=== PATIENT | female | born 1970 | race Caucasian/White ===

== ENCOUNTER → 2016-08-07 | Outpatient (CLI) | payer OTHER ==
[~2016-08-07] MED LIST: ALPR1TAB3 PO; AMLO2.5T PO; ATOR-22 PO; AZIT500T26 PO; BUPR200T2 PO; CHOL100010 PO; FENT75DI17 TD; FERR325T5 PO; FLUO0.05 TOP; HYD10 PO; LAMO1TAB75 PO; LAMO200T38 PO; LEVO1TAB PO; LRS20 PO; MAGN400T6 PO; METO25TA56 PO; MODA1TAB6 PO; MULT-506 PO; OXYC1TAB3 PO; POLY335025 PO; PRLSR20 PO; QUET1TAB13 PO; RANI300T2 PO; RIZA1TAB11 SL; SENN-61 PO; TOBR0.3S4 OPB; TRAM-10 PO; [UNRECOGNIZED DRUG - CODE] PO
[2016-08-07 11:31] LABS: HEMATOCRIT 37.9 % (37-47); MEAN CELL VOLUME 89.4 fL (80-100); MEAN CORPUSCULAR HEMOGLOBIN 29.7 pg (25-34); MEAN CORPUSCULAR HGB CONC 33.2 g/dl (32-36); MEAN PLATELET VOLUME 9.7 fL (7.4-10.4); PLATELET COUNT 232 K/uL (130-400); RED BLOOD COUNT 4.24 M/uL (4.2-5.4); WHITE BLOOD COUNT 9.41 K/uL (4.8-10.8)
[2016-08-07 11:43] LABS: ESTIMATED AVERAGE GLUCOSE 117 mg/dl; HA1C FLAG Normal (Normal)
[2016-08-07 11:57] LABS: ALT/SGPT 17 U/L (12-78); AST/SGOT 7 U/L (15-37); BLOOD UREA NITROGEN 22 mg/dl (7-18); BUN/CREATININE RATIO 20.4 (10-20); CALCIUM 8.2 mg/dl (8.5-10.1); CARBON DIOXIDE 27 mmol/L (21-32); CHLORIDE 106 mmol/L (98-107); GLUCOSE 77 mg/dl (70-99); POTASSIUM 4.6 mmol/L (3.5-5.1); SODIUM 140 mmol/L (136-145)
[2016-08-07 12:08] LABS: ALKALINE PHOSPHATASE 92 U/L (45-117); CHOLESTEROL 153 mg/dl (0-200); CHOLESTEROL/HDL RATIO 2.2; FERRITIN 154.7 ng/ml (8.0-388.0); HDL CHOLESTEROL 69 mg/dl; LDL CHOLESTEROL CALCULATED 68 mg/dl; TRIGLYCERIDES 80 mg/dl (0-150); VERY LOW DENSITY LIPOPROT CALC 16 mg/dl
== END | disposition home or self-care (01) ==
LOC: C.LAB 10:44
PROVIDERS: ATTEND Family Medicine
DX: F32.9 Major depressive disorder, single episode, unspecified (principal); I12.9 Hypertensive chronic kidney disease with stage 1 through stage 4 chronic kidney disease, or unspecified chronic kidney disease; E03.9 Hypothyroidism, unspecified; G37.9 Demyelinating disease of central nervous system, unspecified; E27.40 Unspecified adrenocortical insufficiency; E78.00 Pure hypercholesterolemia, unspecified; E55.9 Vitamin D deficiency, unspecified; N18.3 Chronic kidney disease, stage 3 (moderate); R07.89 Other chest pain; R73.09 Other abnormal glucose

== ENCOUNTER → 2016-11-13 | Outpatient (CLI) | payer OTHER ==
[~2016-11-13] MED LIST changes: -MODA1TAB6 PO; +MODA200T42 PO
[2016-11-13 14:19] LABS: THYROID STIMULATING HORMONE 1.64 uIu/ml (0.300-4.500)
== END | disposition home or self-care (01) ==
LOC: C.LAB 12:51
PROVIDERS: ATTEND Family Medicine
DX: E03.9 Hypothyroidism, unspecified (principal)

== ENCOUNTER 2017-05-18 14:29 | Emergency (ER) | payer OTHER ==
[~2017-05-18] VITALS: Ht 160 cm; Wt 105.1 kg
[~2017-05-18 14:29] MED LIST changes: +LAMO200T35 PO; -LAMO200T38 PO
[2017-05-18 14:39] VITALS: TEMP 36.7; Ht 160 cm; Wt 105.1 kg
[2017-05-18] MEDS ORDERED: ONDANSETRON INJ 2 MG/ML 2 ML VIAL IV STA (14:53)
[2017-05-18] MEDS ORDERED: MoRPHine SULFATE 4 MG/ML 1 ML CARP\\VIAL IV STA (14:53)
[2017-05-18] MEDS ORDERED: OPTIRAY 320 IV PRN (15:15)
[2017-05-18 15:18] VITALS: O2SAT 96
[2017-05-18 15:19] LABS: BASO % 0.2 %; BASO ABS # 0.02 K/uL (0-0.2); COMPLETE YES; EOS % 2.7 %; HEMATOCRIT 38.7 % (37-47); IG% 0.1 %; LYMPH % 33.6 %; LYMPH ABS # 2.78 K/uL (1.2-3.4); MEAN CELL VOLUME 89.6 fL (80-100); MEAN CORPUSCULAR HEMOGLOBIN 30.3 pg (25-34); MEAN CORPUSCULAR HGB CONC 33.9 g/dl (32-36); MEAN PLATELET VOLUME 9.6 fL (7.4-10.4); NEUT % 55.4 %; PLATELET COUNT 244 K/uL (130-400); RED BLOOD COUNT 4.32 M/uL (4.2-5.4); WHITE BLOOD COUNT 8.28 K/uL (4.8-10.8)
[2017-05-18 15:39] LABS: ALT/SGPT 23 U/L (12-78); AST/SGOT 15 U/L (15-37); BLOOD UREA NITROGEN 16 mg/dl (7-18); BUN/CREATININE RATIO 15.1 (10-20); CALCIUM 8.8 mg/dl (8.5-10.1); CARBON DIOXIDE 26 mmol/L (21-32); CHLORIDE 106 mmol/L (98-107); CREATININE 1.05 mg/dl (0.60-1.20); GLUCOSE 91 mg/dl (70-99); POTASSIUM 3.8 mmol/L (3.5-5.1); SODIUM 137 mmol/L (136-145)
[2017-05-18 15:42] LABS: ALKALINE PHOSPHATASE 148 U/L (45-117)
[2017-05-18] MEDS ORDERED: DOXE150C PO (16:04)
[2017-05-18] MEDS ORDERED: BACL20TA PO (16:04)
[2017-05-18] MEDS ORDERED: SYN137 PO (16:04)
[2017-05-18] MEDS ORDERED: LDXCR30 TOP (16:04)
[2017-05-18] MEDS ORDERED: CHOL100041 PO (16:04)
[2017-05-18] MEDS ORDERED: FENT75DI2 TOP (16:04)
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
[2017-05-18] MEDS ORDERED: FENTANYL 75 MCG/HR TDSY TD STA (17:12)
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
[2017-05-18 17:42] VITALS: BP 156/105; PULSE 75; O2SAT 97
[2017-05-18 18:19] LABS: URINE APPEARANCE CLEAR (CLEAR); URINE BILIRUBIN NEG (NEG); URINE COLOR YELLOW; URINE NITRITE NEG (NEG); URINE PH 6.5 (4.5-7.5); URINE SPECIFIC GRAVITY 1.034 (1.000-1.030); UROBILINOGEN NEG (NEG)
[2017-05-18 18:22] LABS: MANUAL MICROSCOPIC REQUIRED? NO; REVIEW REQ? NO
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
== END 2017-05-18 17:44 | disposition home or self-care (01) ==
LOC: EDBD 14:29 → C.EDB 14:30
DX: S20.212A Contusion of left front wall of thorax, initial encounter (principal); R10.84 Generalized abdominal pain; S16.1XXA Strain of muscle, fascia and tendon at neck level, initial encounter; V87.7XXA Person injured in collision between other specified motor vehicles (traffic), initial encounter; E24.9 Cushing's syndrome, unspecified; F32.9 Major depressive disorder, single episode, unspecified; F43.10 Post-traumatic stress disorder, unspecified

== ENCOUNTER → 2017-06-27 | Outpatient (CLI) | payer OTHER ==
[~2017-06-27] MED LIST changes: +BACL20TA PO; -CHOL100010 PO; +CHOL100041 PO; +DOXE150C PO; -FENT75DI17 TD; +FENT75DI2 TOP; -FLUO0.05 TOP; +LDXCR30 TOP; -LEVO1TAB PO; -LRS20 PO; +SYN137 PO; -TOBR0.3S4 OPB; -[UNRECOGNIZED DRUG - CODE] PO
[2017-06-27 12:07] LABS: BASO % 0.3 %; BASO ABS # 0.02 K/uL (0-0.2); EOS % 2.4 %; EOS ABS # 0.16 K/uL (0-0.5); HEMATOCRIT 40.9 % (37-47); HEMOGLOBIN 13.5 g/dL (12.0-16.0); IG# 0.01 K/uL (0.00-0.02); LYMPH % 46.4 %; LYMPH ABS # 3.04 K/uL (1.2-3.4); MEAN CELL VOLUME 90.1 fL (80-100); MEAN CORPUSCULAR HEMOGLOBIN 29.7 pg (25-34); MONO % 8.5 %; MONO ABS # 0.56 K/uL (0.11-0.59); NEUT % 42.2 %; NEUT ABS # 2.76 K/uL (1.4-6.5); PLATELET COUNT 239 K/uL (130-400); RED CELL DISTRIBUTION WIDTH SD 42.5 fL (36.4-46.3); WHITE BLOOD COUNT 6.55 K/uL (4.8-10.8)
[2017-06-27 12:31] LABS: ALBUMIN 3.4 gm/dl (3.4-5.0); ALT/SGPT 20 U/L (12-78); BLOOD UREA NITROGEN 28 mg/dl (7-18); CALCIUM 9.1 mg/dl (8.5-10.1); CARBON DIOXIDE 27 mmol/L (21-32); CHOLESTEROL 171 mg/dl (0-200); CREATININE 1.36 mg/dl (0.60-1.20); GLUCOSE 97 mg/dl (70-99); POTASSIUM 4.1 mmol/L (3.5-5.1); SODIUM 139 mmol/L (136-145)
[2017-06-27 12:42] LABS: ALKALINE PHOSPHATASE 126 U/L (45-117); AST/SGOT 15 U/L (15-37); LDL CHOLESTEROL CALCULATED 85 mg/dl; TOTAL PROTEIN 6.9 gm/dl (6.4-8.2)
[2017-06-27 13:02] LABS: HEMOGLOBIN A1C 5.7 % (4.5-5.6)
== END | disposition home or self-care (01) ==
LOC: C.LAB 10:45
PROVIDERS: ATTEND Nurse Practitioner Adult Health
DX: E55.9 Vitamin D deficiency, unspecified (principal); R73.03 Prediabetes; E78.00 Pure hypercholesterolemia, unspecified; I10 Essential (primary) hypertension; E03.9 Hypothyroidism, unspecified

== ENCOUNTER → 2018-01-01 | Outpatient (CLI) | payer OTHER ==
[~2018-01-01] MED LIST changes: +ONDA-170 PO; +OXYC-90 PO; -OXYC1TAB3 PO; -QUET1TAB13 PO; +QUET200T2 PO
[2018-01-01 10:04] LABS: BLOOD UREA NITROGEN 31 mg/dl (7-18); CREATININE 1.23 mg/dl (0.60-1.20)
== END | disposition home or self-care (01) ==
LOC: C.LAB 08:46
PROVIDERS: ATTEND Psychiatry & Neurology Neurology
DX: G37.9 Demyelinating disease of central nervous system, unspecified (principal)

== ENCOUNTER → 2018-01-01 | Outpatient (CLI) | payer OTHER ==
[~2018-01-01] MED LIST changes: +GADAVIST IV PRN
--- NOTE | 2018-01-01 13:59 | DIAGNOSTIC IMAGING REPORT ---
MRI OF THE BRAIN WITHOUT AND WITH IV CONTRAST CLINICAL HISTORY: DEMYELINATING DISORDER LEG WEAKNESS COMPARISON STUDY: 08/06/2012 TECHNIQUE: MRI of the brain was performed from the vertex to the skull base utilizing various T1 and T2 weighted sequences. Following the IV administration of 10 mL of Gadavist contrast, additional enhanced images were obtained. FINDINGS: Sagittal T1, axial diffusion, proton density and T2 weighted axial, coronal FLAIR, and pre and post axial T1-weighted images were acquired. These were supplemented with post gadolinium coronal T1 weighted images. No intra or extra-axial mass lesions are visualized. Axial diffusion-weighted images reveal no evidence of acute or subacute infarction. There is no evidence of ventricular dilatation. Proton density T2-weighted and FLAIR images reveal scattered foci of increased T2 and FLAIR signal within the white matter. These are minimally progressive when compared the preceding study. The appearance is nonspecific and could represent a demyelinating process or small vessel disease. There is an area of left cerebellar encephalomalacia, likely secondary to a prior infarct There are no abnormal flow voids. There is no evidence of pathologic enhancement. IMPRESSION: 1. No evidence of intracranial mass 2. No evidence of acute or subacute infarction 3. Old left cerebellar infarct 4. Minimal progression in the scattered nonspecific foci of increased T2 and FLAIR signal within the white matter Electronically signed by: Dmitri Lamar M.D. 01/01/2018 1:58 PM Dictated Date/Time: 01/01/2018 1:54 PM
== END | disposition home or self-care (01) ==
LOC: C.MRIBC 12:54
PROVIDERS: ATTEND Psychiatry & Neurology Neurology
DX: G37.9 Demyelinating disease of central nervous system, unspecified (principal)

== ENCOUNTER → 2018-01-24 | Outpatient (CLI) | payer OTHER ==
[~2018-01-24] MED LIST changes: -GADAVIST IV PRN
--- NOTE | 2018-01-25 14:31 | MAMMOGRAPHY REPORT ---
BILATERAL DIGITAL SCREENING MAMMOGRAM TOMOSYNTHESIS WITH CAD: 01/24/2018 CLINICAL HISTORY: Routine screening. The technologist noted engorged blood vessels seen on the right breast with one area forming a visible lump. TECHNIQUE: Breast tomosynthesis in addition to standard 2D mammography was performed. Current study w as also evaluated with a Computer Aided Detection (CAD) system. COMPARISON: Comparison is made to exams dated: 08/29/2007, 08/29/2007, and 02/18/2007. BREAST COMPOSITION: There are scattered areas of fibroglandular density in both breasts. FINDINGS: A triangle marker was placed on the site of the visible lump on the right breast. At the site of the triangle marker in the right upper outer quadrant anteriorly, there is a lobulated 19 x 13 mm mass f or which additional imaging evaluation with targeted ultrasound is recommended. The remainder of both breasts demonstrate no suspicious masses, calcifications, or areas of architectural distortion. IMPRESSION: ACR BI-RADS CATEGORY 0: INCOMPLETE EVALUATION: NEED ADDITIONAL IMAGING EVALUATION Right breast mass, for which additional imaging evaluation is recommended. The patient will be [place] d to schedule an appointment. Some breast cancers are not detected with mammography. A negative mammographic report should not adrianne y biopsy if a clinically suggestive mass is present. Tracie Stevens M.D. ah/:01/24/2018 16:37:00 Underwriting Sales Representative: RT Dayami(Scott)(M), [facility] letter sent: Addl Imaging 0 BI-RADS Code: ACR BI-RADS Category 0: Incomplete Evaluation: Need Additional Imaging Evaluation
== END | disposition home or self-care (01) ==
LOC: C.MAMM 14:57
PROVIDERS: ATTEND Neuromusculoskeletal Medicine & OMM
DX: Z12.31 Encounter for screening mammogram for malignant neoplasm of breast (principal); N63.10 Unspecified lump in the right breast, unspecified quadrant